=== PATIENT | male | born 1990 | race African-American/Black ===

== ENCOUNTER 2023-08-29 18:19 | Emergency (ER) | payer SELFPAY ==
[~2023-08-29] VITALS: Ht 182.9 cm; Wt 100.0 kg
[2023-08-29 18:27] VITALS: BP 126/87; PULSE 74; RESP 16; TEMP 98.6; O2SAT 99
== END 2023-08-29 19:01 | disposition home or self-care (01) ==
LOC: ER 18:19
DX: R51.9 Headache, unspecified (principal); Z59.00 Homelessness unspecified
CPT/HCPCS: 99283